=== PATIENT | male | born 1985 | race African-American/Black ===

== ENCOUNTER 2018-04-07 10:25 | Emergency (ER) | payer MEDICAID ==
[~2018-04-07] VITALS: Ht 188 cm; Wt 82.3 kg
[2018-04-07 10:37] VITALS: Ht 188 cm; Wt 82.3 kg
[2018-04-07] MEDS ORDERED: KEFLEX500 MG PO (11:25)
[2018-04-07] MEDS ORDERED: MUPIROCIN22 GM TOPICAL (11:25)
[2018-04-07 11:43] VITALS: BP 129/82
== END 2018-04-07 11:45 | disposition home or self-care (01) ==
LOC: D.ER 10:25
DX: L02.01 Cutaneous abscess of face (principal); F17.200 Nicotine dependence, unspecified, uncomplicated

== ENCOUNTER 2018-07-25 18:52 | Emergency (ER) | payer MEDICAID ==
[~2018-07-25] VITALS: Ht 188 cm; Wt 77.3 kg
[~2018-07-25 18:52] MED LIST: KEFLEX500 MG PO; MUPIROCIN22 GM TOPICAL
[2018-07-25 19:16] VITALS: BP 123/87; Ht 188 cm; Wt 77.3 kg
== END 2018-07-25 21:17 | disposition left against medical advice (07) ==
LOC: D.ER 18:52
DX: L50.9 Urticaria, unspecified (principal)